=== PATIENT | male | born 1995 | race Caucasian/White ===

== ENCOUNTER 2016-07-25 20:33 | Emergency (ER) | payer SELFPAY ==
[2016-07-25] MEDS ORDERED: ONDANSETRON 4 MG TAB.RAPDIS PO ONE (22:26)
[2016-07-25] MEDS ORDERED: OXYCODONE-ACETAMINOPHEN 5-325 MG TABLET PO ONE (22:26)
--- NOTE | 2016-07-25 22:31 | ER Document Report ---
HPI - HPI Patient complains to provider of: left hand pain Pain Level: 5 Context: Patient is a 21-year-old male that comes emergency department for chief complaint of left hand injury, he states he was playing basketball when he lost his balance and tried to catch himself on the ground, he states he has pain in his hand below his pinky finger extending towards the wrist with swelling to the area. He also states that he has some pain in his left mid to lower back but states he thinks he just pulled something, he denies specific injury to the back, denies focal numbness or weakness, bowel or bladder changes, or any other symptoms. Patient denies any daily medications or past medical history. Past Medical History - General Information source: Patient - Social History Smoking Status: Never Smoker Drug Abuse: None Lives with: Family Family History: Reviewed & Not Pertinent - Medical History Medical History: Negative Renal/ Medical History: Denies: Hx Peritoneal Dialysis Surgical Hx: Negative - Immunizations Immunizations up to date: Yes Vertical Provider Document - INFECTION CONTROL TRAVEL OUTSIDE OF THE [place] IN LAST 30 DAYS: No - HEENT HEENT: Atraumatic, Normal ENT Exam, Normocephalic - NECK Neck: Normal Inspection - RESPIRATORY Respiratory: Breath Sounds Normal, No Respiratory Distress O2 Sat by Pulse Oximetry: 100 - CARDIOVASCULAR Cardiovascular: Regular Rate, Regular Rhythm - GI/ABDOMEN Gastrointestinal: Abdomen Soft, Abdomen Non-Tender - BACK Back: negative: Normal Inspection - There is tenderness in the left upper lumbar paraspinal musculature, no midline tenderness of the spine, no saddle anesthesia, patient moves all extremities without difficulty, normal distal neurovascular exam. - MUSCULOSKELETAL/EXTREMETIES Musculoskeletal/Extremeties: Tender - Tenderness along the MCP of the left hand with soft tissue swelling and very small amount of ecchymosis extending over to the palm. Normal capillary refill, normal sensation. No snuffbox tenderness, no other areas of tenderness, normal wrist, elbow, shoulder exam. Course - Re-evaluation Re-evalutation: Unremarkable back exam. Exam and x-ray consistent with nondisplaced fracture of the left fifth MCP. Splint placed, refer to orthopedics, provided with pain medication, discussed with patient and family, they state understanding and agreement. - Vital Signs Vital signs: Temp Pulse Resp BP Pulse Ox 98.2 F 77 16 121/64 100 07/25/16 20:59 07/25/16 20:59 07/25/16 20:59 07/25/16 20:59 07/25/16 20:59 - Diagnostic Test Radiology reviewed: Image reviewed, Reports reviewed Procedures - Immobilization left hand Pre-Proc Neuro Vasc Exam: Normal Immobilizer type: Ulnar Performed by: Other - BLOCK HAND Post-Proc Neuro Vasc Exam: Normal Alignment checked and good: Yes Discharge - Discharge Clinical Impression: Fracture of fifth metacarpal bone of left hand Qualifiers: Encounter type: initial encounter Fracture type: closed Metacarpal location: base Fracture alignment: nondisplaced Qualified Code(s): S62.347A - Nondisplaced fracture of base of fifth metacarpal bone. left hand, initial encounter for closed fracture Condition: Stable Disposition: HOME, SELF-CARE Additional Instructions: There is a fracture in the bone of the left hand, the part that it joins the fifth finger, near the base and near the wrist. Wear the splint, take the pain medication if needed, follow-up with orthopedics for additional evaluation and management. Return to the emergency department for any concerning symptoms. Prescriptions: Oxycodone HCl/Acetaminophen [Percocet 5-325 mg Tablet] 1 - 2 tab PO Q4H PRN #20 tablet PRN Reason: Forms: Return to School Referrals: BRIANDA JULES DO [ACTIVE STAFF] - Follow up in 3-5 days
[2016-07-25 23:22] VITALS: BP 136/56
== END 2016-07-25 23:43 | disposition home or self-care (01) ==
LOC: ER 20:33
PROC: 2W3DX1Z Immobilization of Left Lower Arm using Splint (ICD-10-PCS; principal; 2016-07-25)
DX: S62.347A Nondisplaced fracture of base of fifth metacarpal bone, left hand, initial encounter for closed fracture (principal); W19.XXXA Unspecified fall, initial encounter; Y93.67 Activity, basketball; M54.5 Low back pain
CPT/HCPCS: 99283; 73130; 29125; S0119